=== PATIENT | male | born 1990 | race Caucasian/White ===

== ENCOUNTER 2016-10-22 10:51 | Emergency (ER) | payer OTHER ==
[2016-10-22 11:05] VITALS: RESP 18; TEMP 98
--- NOTE | 2016-10-22 11:29 | UCPHY ---
H & P Time Seen by Provider: 10/22/16 11:08 Patient Type: Established HPI/ROS: This patient has neck pain. He describes bilateral muscular neck pain right more than left side extends into the rhomboid region/upper back bilaterally. Pain started this morning. He explains that he did some home yoga and then in the shower manually adjusted his neck and after showering within minutes started developing this achy pain that is currently 4/10 at baseline and increases 7/10 with certain movements. He reports mild improvement from the ibuprofen he took shortly prior to arrival. ROS: No numbness tingling or focal weakness. No bowel or bladder incontinence. He has no HEENT complaints. He does report F chronic intermittent lower back pain and does yoga to help with the symptoms. He reports no other complaints and 5 point ROS is otherwise negative Past Medical/Surgical History: Otherwise healthy Smoking Status: Never smoked Physical Exam: Physical Exam Vital signs are normal. General: Pleasant young man and No acute distress HEENT: Atraumatic. Eyes: Pupils equal and react to light. Extraocular motions are intact. Neck: Patient right-sided more than left-sided paraspinous muscular tenderness to the neck that extends into the rhomboid region bilaterally. There is mild muscle spasm in the rhomboid region. No midline tenderness. He has mild limitation range of motion for flexion of his neck due to pain but otherwise range of motion is intact. Lungs: No respiratory distress. Cardiac: Brisk capillary refill is intact throughout. Pulses are 2+ and symmetric in the affected extremity. Skin: No rash or pallor. Neuro: Alert he maintains normal light touch sensory exam bilateral upper and lower extremities and 2+ symmetric biceps, triceps, brachioradialis and patellar DTRs bilaterally. Maintains 5/5 strength bilateral upper extremities. Initial differential diagnosis: Muscle strain versus disc herniation without radiculopathy Constitutional: Initial Vital Signs Temperature (C) 36.6 C 10/22/16 11:02 Heart Rate 68 10/22/16 11:02 Respiratory Rate 18 10/22/16 11:02 Blood Pressure 137/99 H 10/22/16 11:02 O2 Sat (%) 99 10/22/16 11:02 O2 Delivery Mode Room Air Allergies/Adverse Reactions: Sulfa (Sulfonamide Antibiotics) [Sulfa(Sulfonamide Antibiotics)] Allergy (Severe , Verified 03/22/14 09:55) Rash Penicillins Allergy (Unknown, Verified 03/22/14 09:55) Home Medications: Medication Instructions Recorded Miscellaneous Medical Supply [NO 1 ea MISC AD 10/13/12 HOME MEDS] Methocarbamol [Robaxin 750 mg (*)] 750 - 1,500 mg PO QID PRN #30 tab 10/22/16 MDM/Departure - [facility] Course/Re-evaluation: Discussion: This patient appears well clinically with no evidence of radiculopathy on exam. No concerning findings. No evidence of cauda equina. I counseled him regarding neck strain and demonstrated stretches over a period of approximately 5-10 minutes - Depart Disposition: Home, Routine, Self-Care Clinical Impression: Neck muscle strain Qualifiers: Encounter type: initial encounter Qualifier Code: (S16.1XXA) Strain of muscle, fascia and tendon at neck level, initial encounter Condition: Good Instructions: Cervical Strain (ED) Additional Instructions: Diagnosis: Neck strain Plan: Methocarbamol muscle relaxant and ibuprofen-600 mg per 6 hours as needed. Tylenol in addition if needed Gentle stretches as described. In addition, for your back try the butterfly, Sphynx, pigeon" and hamstring [id number] minutes at a time and also stretching neck daily gently 3 minutes in each direction Follow up with primary care physician for any ongoing symptoms last for more than 10 days. Go to The emergency department for any significant worsening despite the treatment Prescriptions: Methocarbamol [Robaxin 750 mg (*)] 750 - 1,500 mg PO QID PRN #30 tab PRN Reason: Muscle Spasms - PQRS PQRS Measurement: NA
[2016-10-22 11:32] VITALS: BP 135/62; PULSE 75; O2SAT 97
== END 2016-10-22 11:31 | disposition home or self-care (01) ==
LOC: CED 10:51
DX: S16.1XXA Strain of muscle, fascia and tendon at neck level, initial encounter (principal)
CPT/HCPCS: 99214-PO; G0463-PO